=== PATIENT | male | born 1950 | race Caucasian/White ===

== ENCOUNTER 2017-03-22 14:18 | Inpatient (IN) | payer MEDICARE, OTHER ==
[~2017-03-22] VITALS: Ht 180.3 cm; Wt 146.1 kg
[2017-03-22] VITALS (9 sets, daily range): BP systolic 114–145; BP diastolic 54–83; PULSE 76–89; RESP 18–30; O2SAT 89–99
[2017-03-22 14:56] LABS: EOSINOPHILS % (AUTO) 0 % (0-5)
[2017-03-22 15:01] LABS: Mean Corpuscular Hemoglobin 29.5 pg (27.0-35.0); Mean Corpuscular Volume 89.9 fL (81-100); Platelet Count 389 bil/L (150-400)
[2017-03-22 15:17] LABS: BASOPHILS % (AUTO) 0 % (0-3); MONOCYTES % (AUTO) 6 % (4-12); NEUTROPHILS % (AUTO) 68 % (40-74)
--- NOTE | 2017-03-22 15:20 | DRSVH ---
PROCEDURE: X-RAY CHEST ONE VIEW, PORTABLE ([id number]) INDICATIONS: Confusion TECHNIQUE: One view of the chest was acquired. COMPARISON: [facility], , CHEST 2VW, 12/02/2014, 8:52. FINDINGS: Surgical changes and devices: None. Lungs and pleura: No pleural effusions or pneumothorax. Lungs are clear. Mediastinum: Mediastinal contours appear normal. Heart size is normal. Bones and chest wall: No suspicious bony lesions. Overlying soft tissues appear unremarkable. IMPRESSION: 1. No acute cardiopulmonary disease. Dictated by: Espinoza Hogan M.D. on 03/22/2017 at 15:15 Approved by: Espinoza Hogan M.D. on 03/22/2017 at 15:19
[2017-03-22] MEDS ORDERED: 0.9% Sodium Chloride 1,000 ML IV ONE (15:35)
[2017-03-22 15:54] LABS: TROPONIN T < 0.010 ug/L (0.0-0.011)
[2017-03-22 16:04] LABS: Creatine Kinase 1400 U/L (21-232)
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
--- NOTE | 2017-03-22 16:14 | DRSVH ---
PROCEDURE: CT BRAIN WITHOUT CONTRAST ([id number]) INDICATIONS: altered mental status TECHNIQUE: Noncontrast 4.5 mm thick angled axial sections acquired from the foramen magnum to the vertex, with c oronal reformats. COMPARISON: None. FINDINGS: Image quality: Excellent. CSF spaces: Basal cisterns are patent. No extra-axial fluid collections. The ventricles are symmet ender in size and shape. There is moderate cerebral volume loss, with resultant ventricular and sulcal prominence. Brain: No intracranial hemorrhage, mass, or mass effect. There are subcortical, periventricular and deep white matter hypodensities consistent with mild to moderate chronic small vessel ischemic chavez es. There is intracranial internal carotid artery atherosclerosis. Skull and face: Calvarium appears intact. There is an erosive lucent lesion partially visualized in the inferior left axilla likely associated with the root of a maxillary molar tooth. Sinuses: Visualized sinuses demonstrate moderate fluid opacification of the left maxillary sinus. T here is complete opacification of the right frontal sinus. Mastoid air cells are clear. IMPRESSION: 1. No definite acute intracranial abnormality. 2. Mild to moderate chronic white matter small vessel ischemic changes and moderate cerebral volume loss. 3. Sinus mucosal disease and partial fluid opacification of the left maxillary sinus. 4. An erosive lucent lesion is partially visualized in the inferior left maxilla likely associated w ith a root of a left maxillary molar. The findings are compatible with a nonspecific odontogenic cys tic lesion. Recommend correlation with dental exam. Dictated by: Espinoza Hogan M.D. on 03/22/2017 at 16:05 Approved by: Espinoza Hogan M.D. on 03/22/2017 at 16:13
[2017-03-22] MEDS ORDERED: Lidocaine 2% 6mL Topical Jelly ONE (16:44)
[2017-03-22] MEDS ORDERED: cefTRIAXone Inj 2,000 MG in Dextrose 5% Minibag Plus 50 ML IV ONE (17:15)
[2017-03-22 17:27] LABS: APPEARANCE,URINE HAZY (CLEAR,HAZY); COLOR,URINE ORANGE (YELLOW)
[2017-03-22 17:28] LABS: OCCULT BLOOD,URINE NEGATIVE (NEGATIVE)
--- NOTE | 2017-03-22 18:57 | DRSVH ---
PROCEDURE: CT ABDOMEN AND PELVIS WITH CONTRAST ([id number]) INDICATIONS: sepsis and elevated bili/transaminases TECHNIQUE: After the administration of intravenous contrast, 5 mm thick sections acquired from the diaphragm to the symphysis. 5 mm coronal and sagittal reformats were acquired. For radiation dose reduction, the following was used: automated exposure control, adjustment of mA and/or kV according to patient siz e. COMPARISON: None. FINDINGS: Image quality: Excellent. ABDOMEN: Lung bases: Lung bases are clear. Heart size is normal. Solid organs: Liver and spleen are normal in size and enhancement. A low density cystic lesion is pr esent near the falciform ligament which likely represents a small hepatic cyst but is incompletely ch aracterized. Gallbladder is moderately distended. There is a 3.3 cm radiopacity within the gallbladde r fundus which may represent a large gallstone, mass, or tumefactive sludge. No gallbladder wall thic kening or pericholecystic fluid. Biliary system is non dilated. Pancreas enhances normally. No adre nal nodules. Kidneys demonstrate normal size and enhancement, without hydronephrosis. There are natalee ateral low-density exophytic renal cystic lesions. Peritoneum and bowel: Bowel loops demonstrate normal overall wall thickness and caliber. The appendi x is thin walled. There scattered diverticular outpouchings in the sigmoid colon. There is a question able fistulous tract between 2 loops of the mid sigmoid colon (series 2, images 66 and 67). There is mild fat stranding in this region. Similarly, there is a questionable fistulous connection between th e mid sigmoid colon of the bladder best visualized on coronal view (series 3, image 30). There is mod erate stranding in this region. However, no gas is visualized within the partially decompressed bladd er to definitely confirm fistulous tract. Nodes and vessels: No retroperitoneal or mesenteric adenopathy by size criteria. Aorta and inferior vena cava are normal in size. There are scattered atheromatous calcifications throughout the aorta and iliac arteries bilaterally. Miscellaneous: No ventral hernias. PELVIS: Genitourinary: Bladder wall thickness is normal. Miscellaneous: There are small bilateral fat-containing inguinal hernias. There are mildly enlarged b ilateral inguinal lymph nodes. Bones: No suspicious bony lesions. No vertebral body compression fractures. IMPRESSION: 1. Cholelithiasis versus gallbladder mass. Right upper quadrant ultrasound is recommended to further characterize this finding. No findings to suggest acute cholecystitis. 2. Normal appendix. 3. Findings suspicious for colonic colonic fistula as described above. Gastrografin enema or colonosc opy may be helpful to further characterize this finding. 4. Questionable colovesicular fistula as described above. Gastrografin enema or cystogram may be help ful to further characterize this finding if clinically indicated. Please correlate with urinalysis. These findings were discussed with Dr. Pedersen at 6:44 PM on 03/22/17. Dictated by: Dimple Ji M.D. on 03/22/2017 at 18:29 Approved by: Dimple Ji M.D. on 03/22/2017 at 18:55
--- NOTE | 2017-03-22 19:34 | DRSVH ---
PROCEDURE: US ABDOMEN, LIMITED ([id number]) INDICATIONS: elevated WBC and ? gallstone on CT TECHNIQUE: Real-time focused scanning was performed of the abdomen, with image documentation. COMPARISON: None. FINDINGS: The gallbladder wall measures 2.2 mm in thickness. No sonographic Catherine sign or pericholec ystic fluid. A 3.5 cm diameter mobile stone is present within the gallbladder fundus. The common bile duct measures 4.3 mm in diameter. IMPRESSION: Cholelithiasis. No findings to suggest choledocholithiasis or acute cholecystitis. Dictated by: Dimple Ji M.D. on 03/22/2017 at 19:31 Approved by: Dimple Ji M.D. on 03/22/2017 at 19:32
[2017-03-22] MEDS ORDERED: KLO2T PO (19:44)
[2017-03-22] MEDS ORDERED: KLO5T PO (19:44)
[2017-03-22] MEDS ORDERED: [UNRECOGNIZED DRUG - REMARK] PO (19:46)
[2017-03-22] MEDS ORDERED: PROP120C2 PO (19:46)
[2017-03-22] MEDS ORDERED: VIT1TABL83 PO (19:49)
[2017-03-22] MEDS ORDERED: MULT-666 PO (19:49)
[2017-03-22] MEDS ORDERED: ASCO-294 PO (19:49)
[2017-03-22] MEDS ORDERED: POTA99TA21 PO (19:50)
[2017-03-22] MEDS ORDERED: Ondansetron 2 mg/mL 2 mL Inj IVPUSH PRN ×2 (20:00→20:55)
[2017-03-22] MEDS ORDERED: Alum-Mag Hydrox-Simeth 30 mL Suspension PO PRN ×2 (20:00→20:55)
--- NOTE | 2017-03-22 20:13 | PCM.HPMED ---
Subjective Date of Service Mar 22, 2017 Primary Provider: Admitting Physician: Rosa Martin DO Primary Care Physician: Nirmal Dawson MD Attending Physician: Rosa Martin DO Admit Status: From the Emergency Department Chief Complaint: Patient found down for an known of time on the floor, altered mental status, confabulating History of Present Illness: The patient is a 67 Y/O M with history of HTN on propranolol 120 mg daily, DM [id number] and not on anti-hyperglycemic medications, anxiety and takes clonazepam 4 mg daily a baseline, as well as undiagnosed mental health issues, who presented to the ED via EMS after being found down laying on the floor in his apartment. Per EMS, the patient appeared to have been crawling around on the floor for sometime. She reports she was on the floor for appeared to 5 days. EMS reported that he smelled strongly of urine. The patient's apartment was in disarray. Patient states that he was attempting to put himself up off the floor but only managed to knock things over. When asked why he was laying on the floor, the patient reported he was playing a game with his family. The pt was last seen normal 5 days ago. The patient states that he was forced to be on the floor by his family members. And yet he states that his family members have not been around for quite some time. Patient is unaware of the last time he had taken his clonazepam. Per the emergency room physician note, the patient stated that he was barricaded by himself in an apartment. The patient reports feeling foggy and confused with regards to details about the last 5 days. The patient claimed that he was being "tortured " and that his family took his phone and computer from him. He went 5 days without any food and fluids. He states that this morning was the first time he had water in 5 days. He states he drinks 4 quarts of water this morning but has not had anything since that time. Associated symptoms include dark urine. Patient has a chronic tremor in both upper extremities. The patient blames his family for his condition. He denies any pain, alcohol or drug use, denies headaches, fevers, sweats, abdominal pain, diarrhea, nausea, vomiting, hematuria , dyspnea, visual changes. The pt lives alone. The patient does endorse visual and audio hallucinations and states that one day he is in his normal apartment in the next day he is somewhere else. He states "he has met and talked with prior landlord study has not seen an ears just this past week." Patient " Scope discs" that projected images on the wall for him to visualize. The patient is an extremely poor historian and his story is very convoluted and irrational the majority of the time. He is oriented to person, place and time. He uses clonazepam for sleep and anxiety. Patient denies any psychiatric anxiety. Denies any family history of mood disorder or schizophrenia. In the ED:Patient was given 1 mg IV push of lorazepam. He was started on ceftriaxone 2 mg once, and bolused 1 L normal saline. Vital signs: Temperature 36.4, pulse 88, respiratory rate 23, blood pressure 144 /70 with a map of 94, oxygen 99% on room air. Hemogram showed: WBC 29.7, with 17% bands, 2% myelocytes, H/H was 13.4/40.8, with its 389. Chemistry panel showed: BUN of 53 creatinine 1.51 with unknown baseline creatinine, Glucose 133, lactic acid 2.3, total bilirubin 1.8, AST/ALT 118/70 Total creatinine kinase 1400 Troponin 0.010 Blood cultures are ordered and pending Patient had an abdominal ultrasound that showed: Gallstone in gallbladder, no signs of choledocholithiasis, No evidence of cholecystitis. CXR showed: No acute cardiopulmonary process Head CT noncontrast showed: No definite acute intracranial abnormality. Mild to moderate chronic white matter small vessel ischemic changes and moderate cerebral volume loss. CT abdomen and pelvis with evidence of gallstone, negative for appendicitis, findings suggestive of [place]-vesical fistula,. Patient's urinalysis was negative for sediment or signs of UTI. Patient was made to the hospital for further medical management and treatment for elevated creatinine kinase, lactic acidosis, leukocytosis, and altered mental status secondary to possible withdrawal from unknown substance. Review of Systems: A comprehensive review of systems was conducted and was negative except as mentioned in history of present illness. Allergies Coded Allergies: No Known Allergies (Unverified , 03/22/17) Home Medications ([Med For Sore Throat]) 1 TAB PO HS Clonazepam (Clonazepam) 2 Mg Tablet Unknown Dose PO HS Propranolol ER (Propranolol ER) 120 Mg Cap.sa.24h 120 MG PO DAILY Scheduled PRN Clonazepam (Clonazepam) 0.5 Mg Tablet Unknown Dose PO BID PRN PRN For Anxiety PMH HTN Anxiety DM Type 2 Surgical History Denies Family History Father with coronary artery disease alcohol abuse and tobacco use disorder who , secondary to his coronary artery disease. Mother 84 who is alive, patient states mother has her old age issues but is unable to specify what. Sister with obesity Sister with obesity Brother with unknown health issues Social History Hx Alcohol Use: No (quit 25 years ago) Hx Substance Use: No Hx Tobacco Use: No Smoking Status: Former Smoker Living Arrangement: Alone Exam Vital Signs Vital Sign - Last Date Time Temp Pulse Resp B/P Pulse Ox O2 Delivery O2 Flow Rate FiO2 03/22/17 19:44 89 29 126/56 99 Room Air 03/22/17 14:29 36.4 Exam General: Patient is alert and oriented [address] time self. He speaks in full sentences however his story is convoluted and often irrational. She is otherwise pleasant. HEENT: NC/AT, without nuchal signs, eyes, PERRLA, pupils are 2-3 mm, EOMI, neck , soft supple, no adenopathy, no JVD, no masses, no thyromegaly, throat mucous membranes pink and extremely dry, no erythema, no exudates, no tonsillar swelling, no uvular deviation. Lungs: CTAB all chatterjee, no wheezes, no rhonchi, no crackles, no adventitious lung sounds, no use of accessory muscles of respiration, good air movement, very poor respiratory effort. Heart: Regular rate and rhythm, grade 2/6 murmur, systolic does not radiate to the neck, S1-S2 present, no rub, no click, no distant heart sounds, Abdomen: Obese, Soft, nontender, nondistended, bowel sounds active, no rebound, no guarding, Genitourinary: No CVA tenderness, no suprapubic tenderness, no Ross catheter, in the groin area consistent with yeast infection Extremities: Muscle strength, 5 out of 5 upper/lower extremity and symmetric laterally, pulses equal and symmetric upper/lower extremity including radial and dorsalis pedis, no edema, fingernails nails appear dirty, Neurologic: Grossly neurologically intact, making in full sentences, no focal neurological signs. Skin: There are excoriations covering a large portion of the left side of his body to include his abdomen, left lower extremity hip, and upper left extremity. Areas a 5 x 5 cm skin tear on the lateral aspect of the left hip, there is a 3 x 3 cm skin abrasion on the left shoulder. Psychiatric: Patient is extremely tangential in his responses to questions. His story is convoluted and irrational. Patient appears anxious, he endorses visual and audio hallucinations. Lab and Diagnostics Result Diagram: 03/22/17 1453 03/22/17 1453 X-Rays, CTs and MRIs Date of Service: 03/22/17 1447 PROCEDURE: X-RAY CHEST ONE VIEW, PORTABLE Surgical changes and devices: None. Lungs and pleura: No pleural effusions or pneumothorax. Lungs are clear. Mediastinum: Mediastinal contours appear normal. Heart size is normal. Bones and chest wall: No suspicious bony lesions. Overlying soft tissues appear unremarkable. IMPRESSION: 1. No acute cardiopulmonary disease. Dictated by: Espinoza Hogan M.D. on 03/22/2017 at 15:15 Approved by: Espinoza Hogan M.D. on 03/22/2017 at 15:19 Date of Service: 03/22/17 1530 PROCEDURE: CT BRAIN WITHOUT CONTRAST CSF spaces: Basal cisterns are patent. No extra-axial fluid collections. The ventricles are symmetric in size and shape. There is moderate cerebral volume loss, with resultant ventricular and sulcal prominence. Brain: No intracranial hemorrhage, mass, or mass effect. There are subcortical , periventricular and deep white matter hypodensities consistent with mild to moderate chronic small vessel ischemic changes. There is intracranial internal carotid artery atherosclerosis. Skull and face: Calvarium appears intact. There is an erosive lucent lesion partially visualized in the inferior left axilla likely associated with the root of a maxillary molar tooth. Sinuses: Visualized sinuses demonstrate moderate fluid opacification of the left maxillary sinus. There is complete opacification of the right frontal sinus. Mastoid air cells are clear. 1. No definite acute intracranial abnormality. 2. Mild to moderate chronic white matter small vessel ischemic changes and moderate cerebral volume loss. 3. Sinus mucosal disease and partial fluid opacification of the left maxillary sinus. 4. An erosive lucent lesion is partially visualized in the inferior left maxilla likely associated with a root of a left maxillary molar. The findings are compatible with a nonspecific odontogenic cystic lesion. Recommend correlation with dental exam. Dictated by: Espinoza Hogan M.D. on 03/22/2017 at 16:05 Approved by: Espinoza Hogan M.D. on 03/22/2017 at 16:13 Date of Service: 03/22/17 1839 PROCEDURE: US ABDOMEN, LIMITED INDICATIONS: elevated WBC and ? gallstone on CT FINDINGS: The gallbladder wall measures 2.2 mm in thickness. No sonographic Catherine sign or pericholecystic fluid. A 3.5 cm diameter mobile stone is present within the gallbladder fundus. The common bile duct measures 4.3 mm in diameter. IMPRESSION: Cholelithiasis. No findings to suggest choledocholithiasis or acute cholecystitis. Dictated by: Dimple Ji M.D. on 03/22/2017 at 19:31 Approved by: Dimple Ji M.D. on 03/22/2017 at 19:32 Date of Service: 03/22/17 1758 PROCEDURE: CT ABDOMEN AND PELVIS WITH CONTRAST ([id number]) INDICATIONS: sepsis and elevated bili/transaminases ABDOMEN: Lung bases: Lung bases are clear. Heart size is normal. Solid organs: Liver and spleen are normal in size and enhancement. A low density cystic lesion is present near the falciform ligament which likely represents a small hepatic cyst but is incompletely characterized. Gallbladder is moderately distended. There is a 3.3 cm radiopacity within the gallbladder fundus which may represent a large gallstone, mass, or tumefactive sludge. No gallbladder wall thickening or pericholecystic fluid. Biliary system is non dilated. Pancreas enhances normally. No adrenal nodules. Kidneys demonstrate normal size and enhancement, without hydronephrosis. There are bilateral low- density exophytic renal cystic lesions. Peritoneum and bowel: Bowel loops demonstrate normal overall wall thickness and caliber. The appendix is thin walled. There scattered diverticular outpouchings in the sigmoid colon. There is a questionable fistulous tract between 2 loops of the mid sigmoid colon (series 2, images 66 and 67). There is mild fat stranding in this region. Similarly, there is a questionable fistulous connection between the mid sigmoid colon of the bladder best visualized on coronal view (series 3, image 30). There is moderate stranding in this region. However, no gas is visualized within the partially decompressed bladder to definitely confirm fistulous tract. Nodes and vessels: No retroperitoneal or mesenteric adenopathy by size criteria. Aorta and inferior vena cava are normal in size. There are scattered atheromatous calcifications throughout the aorta and iliac arteries bilaterally. Miscellaneous: No ventral hernias. PELVIS: Genitourinary: Bladder wall thickness is normal. Miscellaneous: There are small bilateral fat-containing inguinal hernias. There are mildly enlarged bilateral inguinal lymph nodes. Bones: No suspicious bony lesions. No vertebral body compression fractures. IMPRESSION: 1. Cholelithiasis versus gallbladder mass. Right upper quadrant ultrasound is recommended to further characterize this finding. No findings to suggest acute cholecystitis. 2. Normal appendix. 3. Findings suspicious for colonic colonic fistula as described above. Gastrografin enema or colonoscopy may be helpful to further characterize this finding. 4. Questionable colovesicular fistula as described above. Gastrografin enema or cystogram may be helpful to further characterize this finding if clinically indicated. Please correlate with urinalysis. Dictated by: Dimple Ji M.D. on 03/22/2017 at 18:29 Approved by: Dimple Ji M.D. on 03/22/2017 at 18:55 Assessment & Plan 67-year-old male with history of hypertension diabetes and anxiety and mental health issues who was found down for unknown period of time last seen 5 days ago. Patient was found to have leukocytosis 29,000 with 17% bands, a creatinine kinase of 1400, and erythematous. Patient was admitted for further medical evaluation and management of his leukocytosis, rhabdomyolysis and acute encephalopathy, and possible withdrawal from unknown substance. # Acute kidney injury, present remission, active - Factorial, secondary to decreased by mouth fluid intake for a period of 5 days while on the floor. Rhabdomyolysis, - Creatinine admission 1.51 - Rehydration with IV fluids as previously stated - We will continue to monitor serial creatinine SIRs, acute, POA patient meets sepsis criteria with source unknown wbc>12, RR>20 potentially a/w dehydration given clinical picture broad spectrum abx for know given acuity # Acute metabolic encephalopathy versus undiagnosed mood disorder, present on admission, active - Vital signs: Temperature 36.4, pulse 88, respiratory rate 23, blood pressure 144/70 with a map of 94, oxygen 99% on room air. - Patient is a very poor historian and his story is very broken convoluted and the majority of the time sounds irrational. The patient denies history of alcohol abuse or drug abuse. Patient endorses visual and audio hallucinations and states "one day I am in one place, and the next day somewhere else". - Of note patient takes clonazepam at home. He is unaware of the last time he took this medication. He states he takes it as prescribed. - Patient was given single dose of lorazepam 1 mg in the ED. - Physical exam negative for source, negative nuchal signs. - Differential diagnosis includes dehydration, intoxication, infection, inflammatory process, metabolic derangement. - Head CT noncontrast showed: No definite acute intracranial abnormality. Mild to moderate chronic white matter small vessel ischemic changes and moderate cerebral volume loss. - CXR showed: No acute cardiopulmonary process - Chemistry panel was otherwise normal except for BUN of 53 creatinine 1.51 with unknown baseline creatinine, and transaminitis - We will obtain urine tox and blood alcohol level - Continue to monitor for signs of withdrawal from benzodiazepine and alcohol - If urine tox and blood alcohol are negative would recommend a psychiatric evaluation. - We will obtain case management consult # Elevated creatinine kinase, Rhabdomyolysis, present on admission, active - Creatinine kinase in the ED 1400 - Troponin 0.010 - Patient was found down for unknown period of time and possibly for as long as a period of 5 days. Patient was last seen 5 days prior by his neighbors. - Aggressive fluid resuscitation with IV normal saline rate of 1-2 L/hour. Adjusted rate to maintain the desired diuresis approximately 200 to 300 mL/hour. - Order placed for Ross catheter - We will monitor for fluid overload - Continue with regular monitoring of electrolyte imbalances, and treat appropriately - We will avoid nephrotoxic medications. # Leukocytosis, present on admission, active - Source unknown - WVCs 29.7 with 17% bands - CT abdomen and pelvis with evidence of gallstone, negative for appendicitis, findings suggestive of [place]-vesical fistula,. - Patient's urinalysis was negative for sediment or signs of UTI. Patient denied gas/passing air through urethra. - Blood cultures are ordered and pending - He was started on ceftriaxone 2 mg once, in the emergency department. - Blood cultures are ordered and pending - broad spectrum abx with piperacillin-tazobactam - We will obtain infectious disease consult #Hyperglycemia in a known type II diabetic, present on admission, active - Glucose 133 - Hemoglobin A1c ordered and pending # Lactic acidosis, present on admission, active - Lactic acid 2.3 -The patient already received 1 L bolus normal saline, will continue fluid rehydration at 100 mL of normal saline per hour - We will trend lactic acid until normal # Transaminitis, present on admission, active - Total Bilirubin was 1.8, AST/ALT 118/70 -Abdominal ultrasound negative for signs of cholecystitis Chronic Problems HTN - Patient takes ER 120 mg daily. - She states he took 3 since this morning because states all he could find Anxiety - States he takes 4 mg daily clonazepam with an additional 0.5 mg if needed. - We will continue patient's home medication clonazepam DM Type 2 - Not on insulin. Not on antihypertensive glycemic - Hemoglobin A1c ordered and pending # Obesity Disposition: Admitted to in patient service with expected length of stay greater than 2 days, secondary to severity of presenting symptoms, treatment plan, complexity of clinical work up, and risk of adverse events. CODE STATUS: Full code PCP: Nirmal Dawson DVT PE prophylaxis: SCD's Contact: Patient's son Sourav unknown phone number. Patient states he talks to his son on a weekly basis. VTE Prophylaxis: SCDs Resuscitation Status: CPR: Attempt Resuscitation Attending Statement The patient was seen and examined together with house staff on 03/22/2017 and I agree with the history, exam and plan as outlined in the note above. Ady Meyer DO Mar 22, 2017 20:13 Rosa Martin DO Mar 23, 2017 05:28
[2017-03-22] MEDS ORDERED: Polyethylene Glycol (PEG) 17 Gm Powder PO PRN (20:55)
[2017-03-22 21:25] LABS: Magnesium 2.5 mg/dL (1.6-2.6); Phosphorus 3.6 mg/dL (2.5-4.9)
[2017-03-22] MEDS: 0.9% Sodium Chloride 1,000 ML IV SCH (22:41)
[2017-03-23] VITALS (7 sets, daily range): BP systolic 107–143; BP diastolic 61–81; PULSE 7–83; RESP 18–22; O2SAT 93–97
[2017-03-23] MEDS: Sodium Chloride LOK Flush 10 mL Syringe IVFLUSH SCH ×4 (00:30→21:45)
[2017-03-23] MEDS: 0.9% Sodium Chloride 1,000 ML IV SCH ×6 (00:37→17:12)
[2017-03-23 03:10] LABS: Mean Corpuscular Hemoglobin 28.9 pg (27.0-35.0); Mean Corpuscular Volume 90.8 fL (81-100); Platelet Count 302 bil/L (150-400)
[2017-03-23 03:29] LABS: BASOPHILS % (AUTO) 0 % (0-3); EOSINOPHILS % (AUTO) 0 % (0-5); MONOCYTES % (AUTO) 4 % (4-12); NEUTROPHILS % (AUTO) 77 % (40-74)
--- NOTE | 2017-03-23 05:12 | NUR ---
Admit Pt. received from ED. A/0x3, with intermittent periods of confusion. Ross placed, IV NS @ 250mL/hr. Skin assessment notable for red scratches up left side as well as open sores on Left bi-cep and Left hip; treated with Bacitracin and dressed with Mepilex. Groin/pannis region red and macerated with rash like extension. Calmoseptine applied. Patient oriented to room, call light placed within reach and safety checks performed. VSS, Tele SR 80's.
[2017-03-23] MEDS ORDERED: Piperacillin-Tazo 3.375 Gm Inj 3.375 GM in Dextrose 5% Minibag Plus 50 ML IV ONE (08:30)
[2017-03-23] MEDS: Propranolol LA 60 mg ER24 Capsule PO SCH (10:10)
--- NOTE | 2017-03-23 11:58 | NUR ---
Social Work: Initial Assessment and Multidisciplinary Rounds D: Per EMR review, pt is a 67 year old male admitted for AMS, Rhabdomyalisis. Pt is [facility]. with Medicare; pt states he has no LTC insurance or VA benefits. PCP is Nirmal Dawson MD. NOK is Bernard Ross, Friend, . Advanced directives not completed- info provided by ADOPTION SPECIALIST. No RA Score entered at htis time. Pt discussed in MD rounds. Pt is on day 1 of stay with an unknown source of septic infection. Per RN, pt is oriented to person, place and time. ADOPTION SPECIALIST met with pt at bedside. Sw role explained and Discharge planning checklist provided- contact info provided. Pt lives in [facility]. Pt states that he does not have any NOK that is family that he wishes to include in his medical record at this time. Pt states that he uses no DME, is I with all of his ADLs and has never had HH or skilled rehab. Pt states that he has looked into assisted living for himself but is not yet ready for this move. Pt provided verbal consent for ADOPTION SPECIALIST to speak to his friend to verify pt's ability for self-care. t/c to pt's friend/NOK. No answer. left message requesting return phone call to discuss pt's PLOF. Pt states that he wishes to discharge home and does not feel that he will require any supportive services. A: Pt who lives at home and states he is I at baseline. P: Evolving; ADOPTION SPECIALIST to continue to follow pt's clinical course to confirm PLOF and assess for discharge needs. CK Guthrie Addendum: 03/23/17 at 1204 by JODEE CHAVEZ Amended: Links added.
[2017-03-23] MEDS ORDERED: Potassium Chloride 20 mEq SR Tablet PO ONE (13:20)
--- NOTE | 2017-03-23 13:35 | NUR ---
spiritual care: pt request conversational visit. pt reflected on his coming to decisions about lifestyle changes over last several days and asked for sounding board and possibly community connections as he desires more interpersonal connections. He discussed his hopes and his history of more isolative lifestyle as well as his sense of progression: "I have a few things i have to take care of." Pt did not share his medical care or plan and when i asked specifically, he said "i'm not getting anything, these aren't anything." gesturing at his iv pole. Pt was disclosive about his history with alcohol including periods of abstinence. Pt expressive of his spirituality and sense of being protected and guided by god. Prayer. Pt requested follow up conversation following his hospitalization. plan discussed.
[2017-03-23] MEDS: Thiamine Inj 200 MG in Dextrose 5% 50 ML IV SCH (15:53)
[2017-03-23] MEDS: Piper-Tazo 3.375 Gm/50 mL D5W Minibag Plus - Q8H over 4 hrs IV SCH ×2 (17:12)
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
[2017-03-23] MEDS ORDERED: cefTRIAXone Inj 2,000 MG in Dextrose 5% Minibag Plus 50 ML IV SCH (18:00)
--- NOTE | 2017-03-23 19:38 | NUR ---
K+/Mentation Pt's K+ 3.4 this am, made aware, PO K+ repletion ordered, am labs ordered. Pt A&Ox3 this am, but forgetful of important details throughout the shift. Pt could not recall where he lived for several hours. Pt also accidentally D/C'd own IV again when self-transferring. updated throughout shift.
[2017-03-23] MEDS ORDERED: Heparin 5,000 Unit/mL Inj SUBQ SCH (20:30)
[2017-03-24] MEDS: Piper-Tazo 3.375 Gm/50 mL D5W Minibag Plus - Q8H over 4 hrs IV SCH ×4 (00:04→09:51)
[2017-03-24 03:01] LABS: Mean Corpuscular Hemoglobin 28.5 pg (27.0-35.0); Mean Corpuscular Volume 93.3 fL (81-100); Platelet Count 284 bil/L (150-400)
[2017-03-24 03:21] LABS: MONOCYTES % (AUTO) 11 % (4-12); NEUTROPHILS % (AUTO) 65 % (40-74)
[2017-03-24 03:22] LABS: BASOPHILS % (AUTO) 0 % (0-3); EOSINOPHILS % (AUTO) 1 % (0-5)
[2017-03-24] MEDS: 0.9% Sodium Chloride 1,000 ML IV SCH (03:25)
[2017-03-24 03:56] VITALS: BP 136/63; PULSE 69; RESP 20; O2SAT 94
[2017-03-24 05:27] VITALS: PULSE 73
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
[2017-03-24] MEDS ORDERED: Potassium Chloride 20 mEq SR Tablet PO ONE (06:45)
[2017-03-24] MEDS: Sodium Chloride LOK Flush 10 mL Syringe IVFLUSH SCH (08:30)
[2017-03-24 08:36] VITALS: PULSE 68
[2017-03-24 08:58] VITALS: BP 149/77; PULSE 70; RESP 20; O2SAT 95
[2017-03-24] MEDS: Thiamine Inj 200 MG in Dextrose 5% 50 ML IV SCH (09:00)
[2017-03-24] MEDS: Propranolol LA 60 mg ER24 Capsule PO SCH (09:00)
--- NOTE | 2017-03-24 11:29 | NUR ---
Evaluation completed. Please go to "Notes" then click on "Assessments and Notes" (bottom left corner of screen). Then select appropriate discipline tab on top of screen.
--- NOTE | 2017-03-24 11:33 | PCM.DIMED ---
Luis Nava DO 03/24/17 1133: Discharge Instructions Date of Service Mar 24, 2017 Dates of Hospitalization Mar 22, 2017 at 19:34 Discharge Diagnosis Discharge Diagnosis Acute kidney injury SIRs Acute metabolic encephalopathy Rhabdomyolysis Leukocytosis Hyperglycemia Lactic acidosis Transaminitis HTN Anxiety Obesity Diet Discharge Diet: Heart Healthy Activity Discharge Activity: No restrictions Call your provider Call your provider for: Fever or Chills, Shortness of breath, Chest pain, Vomitting, Excessive diarrhea Patient Instructions Patient Instructions Your kidney function and electrolytes have responded well to rehydration. We did not find any overt or ongoing source of infection. If you experience any fever, chills, nausea, vomiting, excessive diarrhea or fatigue, please return to the hospital. Follow up with Dr. Dawson as soon as he is back in the office, or at least consider seeing one of his partners before hand. Follow-up Provider: Nirmal Dawson MD, Robert W MD 03/24/17 1714: Discharge Instructions Attending's Statement The patient was seen and examined together with Dr. Nava on 03/24/2017 and I agree with the history, exam and plan as outlined in the note above. . Luis Nava DO Mar 24, 2017 11:33 Olvin Garcia MD Mar 24, 2017 17:14
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
[2017-03-24 12:21] VITALS: BP 184/88; PULSE 69; RESP 18; O2SAT 90
--- NOTE | 2017-03-24 15:35 | PCM.DC.MED ---
Discharge Summary Date of Service Mar 24, 2017 Dates of Hospitalization Date of Hospital Admission Mar 22, 2017 at 19:34 Date of Discharge: Mar 24, 2017 Providers: Admitting Physician: Rosa Martin DO Primary Care Physician: Nirmal Dawson MD Attending Physician: Olvin Garcia MD Diagnosis at Time of Discharge Diagnosis at Time of Discharge Acute kidney injury SIRs Acute metabolic encephalopathy Rhabdomyolysis Leukocytosis Hyperglycemia Lactic acidosis Transaminitis HTN Anxiety Obesity Procedures XRay, CTs & MRIs Date of Service: 03/22/17 1447 PROCEDURE: X-RAY CHEST ONE VIEW, PORTABLE Surgical changes and devices: None. Lungs and pleura: No pleural effusions or pneumothorax. Lungs are clear. Mediastinum: Mediastinal contours appear normal. Heart size is normal. Bones and chest wall: No suspicious bony lesions. Overlying soft tissues appear unremarkable. IMPRESSION: 1. No acute cardiopulmonary disease. Dictated by: Espinoza Hogan M.D. on 03/22/2017 at 15:15 Approved by: Espinoza Hogan M.D. on 03/22/2017 at 15:19 Date of Service: 03/22/17 1530 PROCEDURE: CT BRAIN WITHOUT CONTRAST CSF spaces: Basal cisterns are patent. No extra-axial fluid collections. The ventricles are symmetric in size and shape. There is moderate cerebral volume loss, with resultant ventricular and sulcal prominence. Brain: No intracranial hemorrhage, mass, or mass effect. There are subcortical , periventricular and deep white matter hypodensities consistent with mild to moderate chronic small vessel ischemic changes. There is intracranial internal carotid artery atherosclerosis. Skull and face: Calvarium appears intact. There is an erosive lucent lesion partially visualized in the inferior left axilla likely associated with the root of a maxillary molar tooth. Sinuses: Visualized sinuses demonstrate moderate fluid opacification of the left maxillary sinus. There is complete opacification of the right frontal sinus. Mastoid air cells are clear. 1. No definite acute intracranial abnormality. 2. Mild to moderate chronic white matter small vessel ischemic changes and moderate cerebral volume loss. 3. Sinus mucosal disease and partial fluid opacification of the left maxillary sinus. 4. An erosive lucent lesion is partially visualized in the inferior left maxilla likely associated with a root of a left maxillary molar. The findings are compatible with a nonspecific odontogenic cystic lesion. Recommend correlation with dental exam. Dictated by: Espinoza Hogan M.D. on 03/22/2017 at 16:05 Approved by: Espinoza Hogan M.D. on 03/22/2017 at 16:13 Date of Service: 03/22/17 1839 PROCEDURE: US ABDOMEN, LIMITED INDICATIONS: elevated WBC and ? gallstone on CT FINDINGS: The gallbladder wall measures 2.2 mm in thickness. No sonographic Catherine sign or pericholecystic fluid. A 3.5 cm diameter mobile stone is present within the gallbladder fundus. The common bile duct measures 4.3 mm in diameter. IMPRESSION: Cholelithiasis. No findings to suggest choledocholithiasis or acute cholecystitis. Dictated by: Dimple Ji M.D. on 03/22/2017 at 19:31 Approved by: Dimple Ji M.D. on 03/22/2017 at 19:32 Date of Service: 03/22/17 1758 PROCEDURE: CT ABDOMEN AND PELVIS WITH CONTRAST ([id number]) INDICATIONS: sepsis and elevated bili/transaminases ABDOMEN: Lung bases: Lung bases are clear. Heart size is normal. Solid organs: Liver and spleen are normal in size and enhancement. A low density cystic lesion is present near the falciform ligament which likely represents a small hepatic cyst but is incompletely characterized. Gallbladder is moderately distended. There is a 3.3 cm radiopacity within the gallbladder fundus which may represent a large gallstone, mass, or tumefactive sludge. No gallbladder wall thickening or pericholecystic fluid. Biliary system is non dilated. Pancreas enhances normally. No adrenal nodules. Kidneys demonstrate normal size and enhancement, without hydronephrosis. There are bilateral low- density exophytic renal cystic lesions. Peritoneum and bowel: Bowel loops demonstrate normal overall wall thickness and caliber. The appendix is thin walled. There scattered diverticular outpouchings in the sigmoid colon. There is a questionable fistulous tract between 2 loops of the mid sigmoid colon (series 2, images 66 and 67). There is mild fat stranding in this region. Similarly, there is a questionable fistulous connection between the mid sigmoid colon of the bladder best visualized on coronal view (series 3, image 30). There is moderate stranding in this region. However, no gas is visualized within the partially decompressed bladder to definitely confirm fistulous tract. Nodes and vessels: No retroperitoneal or mesenteric adenopathy by size criteria. Aorta and inferior vena cava are normal in size. There are scattered atheromatous calcifications throughout the aorta and iliac arteries bilaterally. Miscellaneous: No ventral hernias. PELVIS: Genitourinary: Bladder wall thickness is normal. Miscellaneous: There are small bilateral fat-containing inguinal hernias. There are mildly enlarged bilateral inguinal lymph nodes. Bones: No suspicious bony lesions. No vertebral body compression fractures. IMPRESSION: 1. Cholelithiasis versus gallbladder mass. Right upper quadrant ultrasound is recommended to further characterize this finding. No findings to suggest acute cholecystitis. 2. Normal appendix. 3. Findings suspicious for colonic colonic fistula as described above. Gastrografin enema or colonoscopy may be helpful to further characterize this finding. 4. Questionable colovesicular fistula as described above. Gastrografin enema or cystogram may be helpful to further characterize this finding if clinically indicated. Please correlate with urinalysis. Dictated by: Dimple Ji M.D. on 03/22/2017 at 18:29 Approved by: Dimple Ji M.D. on 03/22/2017 at 18:55 Brief History The patient is a 67 Y/O M with history of HTN on propranolol 120 mg daily, DM [id number] and not on anti-hyperglycemic medications, anxiety and takes clonazepam 4 mg daily a baseline,, who presented to the ED via EMS after being found down laying on the floor in his apartment. Per EMS, the patient appeared to have been crawling around on the floor for sometime. EMS also reported that he smelled strongly of urine and his apartment was in disarray. The patient is a poor historian and there was no available family or friends to corroborate his story. From what we were able to gather collectively, the patient was on the floor of his apartment for a period of 5 days and was attempting to get up but couldn't find anything to support himself back to his feet. The patient says he was groggy throughout the entire time and can't piece together the events that well. He says it started as a family game but everyone else left, did not help him up, and barricaded him into his own apartment. He admits to distant abuse of alcohol but denies any recent usage. He was admitted to the hospital for his elevated CPK, Lactic Acid, Leukocytosis and altered mental status secondary to possible substance use. He was placed on Zosyn and hydrated aggressively. During his stay his story remained convoluted and illogical but consistently so. He was and remains oriented to himself, location, date, and time and was insistent he goes home to figure out what happened. Further inquiry on a possible source of infection or reason for altered mental status revealed no obvious answers. The patient was able to make his own decisions and continued to express his desire to go home. Social work was involved and ultimately decided to open an APS case for home safety and self neglect evaluation. The patient was counseled on his treatment options but ultimately chose to go home. He expressed understanding under what conditions he should return to the hospital. As his PCP, Dr. Dawson, is out of the office for some time, we suggested he see a N partner for close follow up. He denied this request stating he only trusted Dr. Dawson with his care. Hospital Course 67-year-old male with history of hypertension diabetes and anxiety and mental health issues who was found down for unknown period of time last seen 5 days ago. Patient was found to have a leukocytosis 29,000 consisting of 17% bands, a creatinine kinase of 1400, and multiple skin excoriations. The patient was admitted for further medical evaluation and management of his leukocytosis, rhabdomyolysis and acute encephalopathy, and possible withdrawal from unknown substance. Acute kidney injury, present on admission. Resolved. - Likely multifactorial, secondary to decreased fluid intake for a period of 5 days while on the floor. Rhabdomyolysis. - Creatinine was 0.9 on discharge - Patient was educated to stay hydrated and avoid NSAIDs at this time SIRs Criteria, acute, present on admission. Improved. - On admission: WBC>12, RR>20 - Possibly dehydration and stress response given clinical picture (afebrile, negative blood cultures, negative urine culture) Acute metabolic encephalopathy versus undiagnosed mood disorder, present on admission, Stable. - Patient is a very poor historian and his story is very broken convoluted. The patient alcohol or drug abuse. - Tox screen positive for benzodiazepine use, which is is prescribed - Alcohol negative, ammonia within normal limits - Brain CT negative, no signs/symptoms of RUG [employer] AXMIN[employer] infection on exam - Social work was involved to evaluate baseline, home life Elevated creatinine kinase, Rhabdomyolysis, present on admission. Improving. - Mildly elevated CPK trended to normal - Patient was aggressively hydrated - Patient educated to avoid nephrotoxins (NSAIDs especially) Leukocytosis, present on admission. Improving. - Source unknown; blood cultures negative x24h and urinalysis negative - WBC fell to 16.2 on discharge - CT abdomen and pelvis with possible [place]-vesical fistula - Pathologist read on peripheral smear still pending Hyperglycemia in a known type II diabetic, present on admission, Improving. - Glucose 110 on 03/23 - HA1C 5.5 Lactic acidosis, present on admission. Resolved. - Likely due to dehydration and SIRS presentation, possible infection - Lactic acid normalized at 1.3 Transaminitis, present on admission. Resolved. - LFT's trending toward normal, were elevated in alcohol type pattern -Abdominal ultrasound negative for signs of cholecystitis - Patient otherwise asymptomatic HTN - Continue Propranolol 120 mg daily. Anxiety - Continue home clonazepam Obesity - Educational materials provided - Patient not interested in nutritional counseling Disposition: Patient was discharged home in stable and improved condition. We discussed the options of further evaluation but the patient continued to be fully capable of decision making and ultimately wanted to go home to figure out what transpired. We were unable to get into contact with any family or friends to elucidate any of his story. He also told us he will only follow up with his PCP, Dr. Dawson, who gets into the office, sometime around 04/02 as he does not want to see any of his colleagues. He expressed understanding of his situation and under what circumstances he was to return to the hospital for further evaluation. Exam Vital Signs (Last) Date Time Temp Pulse Resp B/P Pulse Ox O2 Delivery O2 Flow Rate FiO2 03/24/17 12:21 36.6 69 18 184/88 90 Room Air Exam General: Pleasant but dishevelled elderly male sitting upright in bed watching TV in NAD. HEENT: NCAT. PERRLA, EOMI. Mucous membranes pink and moist. Neck: Supple, full ROM. No JVD, thyromegaly but due to body habitus it is hard to evaluate. CV: RRR, 2-3/6 systolic mumur, normal S1/S2. No rubs/gallops. Pulm: CTA bilaterally, no wheezes/rales/rhonchi. Normal respiratory effort. Abd: Obese. Soft, nontender/nondistended. Normoactive bowel sounds, no rebound or guarding. Extremities: No cyanosis, clubbing, edema. Fingernails are dirty. Skin: Excoriations as before. Still no signs of infection. Neuro: A&Ox3, CN 2-12 intact. Muscle strength normal in all extremities, no focal deficits. Psych: Patient is anxious and expresses desire to leave. He denies hallucinations. Test 03/22/17 14:53 03/22/17 17:06 03/22/17 21:10 03/22/17 21:12 Myelocytes % 2% (0-0) Hemoglobin A1c 5.5% (4.8-5.6) Phosphorus Level 3.6mg/dL (2.5-4.9) Magnesium Level 2.5mg/dL (1.6-2.6) Troponin T < 0.010ug/L (0.0-0.011) Urine Color [place] (YELLOW) Urine Appearance Hazy (CLEAR,HAZY) Urine pH 6.0 (5.0-8.0) Urine Specific [place] 1.020 (1.003-1.035) Urine Protein 30mg/dL (NEG,TRACE) Urine Glucose (UA) Negativemg/dL (NEGATIVE) Urine Ketones Tracemg/dL (NEGATIVE) Urine Occult Blood Negative (NEGATIVE) Urine Nitrite Negative (NEGATIVE) Urine Bilirubin Negative (NEGATIVE) Urine Urobilinogen 1.0mg/dL (NORMAL) Urine Leukocyte Esterase Negative (NEGATIVE) Urine RBC 0-2/hpf (0-2) Urine WBC 0-5/hpf (0-5) Urine Epithelial Cells Few/hpf (NONE-MOD) Urine Crystals None seen (NONE SEEN) Urine Bacteria Few/hpf (NONE-FEW) Urine Hyaline Casts None/lpf (NONE) Urine Granular Casts None seen (NONE SEEN) Urine Waxy Casts None seen (NONE SEEN) Urine Red Blood Cell Casts None seen (NONE SEEN) Urine White Blood Cell Casts None seen (NONE SEEN) Urine Mucus None seen (None Seen) Urine Trichomonas None seen (NONE SEEN) Urine Yeast None (NONE SEEN) Urinalysis Comment None Urine Culture Reflexed Not indicated Alcohols < 10mg/dL (0-10) Urine Opiates Screen Negative Urine Methadone Screen Negative Urine Barbiturates Screen Negative Urine Amphetamines Screen Negative Urine Benzodiazepines Screen Positive Urine Cocaine Metabolite Screen Negative Urine Cannabinoids Screen Negative Test 03/23/17 03:00 03/24/17 02:45 Lactic Acid Level 1.3mmol/L (0.4-2.0) Ammonia 52ug/dL (18-53) Procalcitonin 0.15ng/mL (0.00-0.08) White Blood Count 16.2th/mm3 (3.8-10.1) Red Blood Count 3.44mil/mm3 (4.40-5.80) Hemoglobin 9.8g/dL (13.8-17.2) Hematocrit 32.1% (41.0-50.0) Mean Corpuscular Volume 93.3fL (81-100) Mean Corpuscular Hemoglobin 28.5pg (27.0-35.0) Mean Corpuscular Hemoglobin Concent 30.5% (32.0-37.0) Red Cell Distribution Width 16.4% (12.3-15.4) Platelet Count 284bil/L (150-400) Neutrophils (%) (Auto) 65% (40-74) Lymphocytes (%) (Auto) 19% (14-46) Monocytes (%) (Auto) 11% (4-12) Eosinophils (%) (Auto) 1% (0-5) Basophils (%) (Auto) 0% (0-3) Band Neutrophils % 3% (1-5) Metamyelocytes % 1% (0-0) Hematology Comments Sodium Level 145mEq/L (134-144) Potassium Level 3.5mEq/L (3.5-5.2) Chloride Level 107mEq/L (97-108) Carbon Dioxide Level 21mmol/L (18-29) Blood Urea Nitrogen 23mg/dL (8-27) Creatinine 0.94mg/dL (0.76-1.27) Estimat Glomerular Filtration Rate 85mL/min (>59) Glucose Level 103mg/dL (60-99) Calcium Level 8.2mg/dL (8.5-10.1) Total Bilirubin 0.7mg/dL (0.0-1.2) Aspartate Amino Transf (AST/SGOT) 52U/L (0-50) Alanine Aminotransferase (ALT/SGPT) 46U/L (0-44) Alkaline Phosphatase 64U/L (25-160) Total Creatine Kinase 303U/L (21-232) Total Protein 5.5g/dL (6.4-8.4) Albumin 2.9g/dL (3.4-5.0) Discharge Medications Discharge Medications ([Med For Sore Throat]) 1 TAB PO HS (Reported) Ascorbate Calcium (Vitamin C) 500 Mg Tablet 1,000 MG PO DAILY (Reported) Clonazepam (Clonazepam) 2 Mg Tablet 2-6 PO HS (Reported) Multivitamin (Once Daily) 1 Each Tablet 1 EACH PO DAILY (Reported) Propranolol ER (Propranolol ER) 120 Mg Cap.sa.24h 120 MG PO DAILY (Reported) Vit B Comp/C/FA/Iron/Vit E (Vitamin B Complex Tablet) 1 Each Tablet 1 EACH PO DAILY (Reported) As needed Clonazepam (Clonazepam) 0.5 Mg Tablet 0.5 MG PO QID PRN PRN For Anxiety ( Reported) Potassium Gluconate (Potassium) 99 Mg Tablet 99 MG PO DAILY PRN PRN LEG CRAMPS ( Reported) Followup Plan Discharge Diet: Heart Healthy Discharge Activity: No restrictions Patient Instructions Your kidney function and electrolytes have responded well to rehydration. We did not find any overt or ongoing source of infection. If you experience any fever, chills, nausea, vomiting, excessive diarrhea or fatigue, please return to the hospital. Follow up with Dr. Dawson as soon as he is back in the office, or at least consider seeing one of his partners before hand. Follow-up Provider: Nirmal Dawson MD Time spent Greater than 30 minutes was spent in preparation of discharge with greater than 50% of that time dedicated to patient counseling and coordination of care. . Attending Statement The patient was seen and examined together with Dr. Nava on 03/24/2017 and I agree with the history, exam and plan as outlined in the note above. . copies to: Nirmal Dawson MD, Jeffery S DO Mar 24, 2017 15:35 Olvin Garcia MD Mar 24, 2017 17:16 Patient Instructions Your kidney function and electrolytes have responded well to rehydration. We did not find any overt or ongoing source of infection. If you experience any fever, chills, nausea, vomiting, excessive diarrhea or fatigue, please return to the hospital. Follow up with Dr. Dawson as soon as he is back in the office, or at least consider seeing one of his partners before hand. Follow-up Provider: Nirmal Dawson MD, Jeffery S DO Mar 24, 2017 15:35
--- NOTE | 2017-03-24 16:26 | NUR ---
Discharge Pt physically clear for discharge per MD, see SW note for details regarding discharge disposition/recs. Pt very eager to discharge, discharge order placed by MD. Pt's IV D/C'd and intact. Taxi service called for Pt by GERTRUDE. Pt given discharge educational materials on AMS, sepsis, rhabdo, and MARYANN. Pt instructed to f/u with Dr. Samir BECERRIL, Pt verbalized that he would. Pt left [facility] room 2008 at ~1515. Pt verbalized understanding of all discharge instructions. All belongings accompanied Pt at time of discharge.
== END 2017-03-24 15:24 | disposition home or self-care (01) | DRG 871 ==
LOC: EDBD 14:18 → SED 14:18 → PCC 19:34
PROVIDERS: ADMIT Internal Medicine; ATTEND Internal Medicine
DX: A41.9 Sepsis, unspecified organism (principal); G93.41 Metabolic encephalopathy; N17.9 Acute kidney failure, unspecified; M62.82 Rhabdomyolysis; E87.2 Acidosis; Z68.41 Body mass index [BMI] 40.0-44.9, adult; E86.0 Dehydration; E66.9 Obesity, unspecified; I10 Essential (primary) hypertension; F41.9 Anxiety disorder, unspecified; E11.65 Type 2 diabetes mellitus with hyperglycemia